=== PATIENT | male | born 1975 | race Caucasian/White ===

== ENCOUNTER 2023-09-09 07:30 | Outpatient (RCR) | payer OTHER, SELFPAY | END 2023-09-11 14:25 | disposition home or self-care (01) | PROVIDERS: PCP Family Medicine; Visit Provider Family Medicine | DX: M23.8X1 Other internal derangements of right knee (principal); M17.11 Unilateral primary osteoarthritis, right knee; Z51.89 Encounter for other specified aftercare | CPT/HCPCS: 97110; 97140; 97161 ==

== ENCOUNTER 2024-09-13 12:18 | Emergency (ER) | payer OTHER, BC, SELFPAY ==
[2024-09-13] VITALS (7 sets, daily range): BP systolic 114–136; BP diastolic 71–90; PULSE 46–54; RESP 16–18; TEMP 36.5; O2SAT 96–98; BMI 28.7
--- OUTSIDE RECORDS SUMMARY | 2024-09-13 12:21 | XMS_ITS | Clinical Summary ---
Author Organization [facility] Address [address] [place] [address] Care Team Providers Care Light Coil Winder Name Role Phone Mann Lau MD Primary Care Provider [phone] Source Comments You are receiving this document as you are listed as the primary care provider,follow-up provider, or the patient has been referred to you for consultation.This is in compliance with the Medicare andMedicaid EHR Incentive Program,which states Providers who transition their patient to another setting of careor provider of care or refers their patient to another provider of care shouldprovide summary care record for each transition of care or referral. [employer] Allergies Active Allergy Reactions Criticality Noted Date Comments Shellfish-Derived Products Unknown 0 Reaction - Unknown; Patient reports has allergy to Shellfish at time of 04/26/19 PT Evaluation. Morphine And Codeine Unknown 04/26/2019 Reaction - Unknown; Patient reports has allergy to Vicodin at time of 04/26/19 PT Evaluation. 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 Gender Identity Not on file Sexual Orientation Not on file Plan of Treatment Health Maintenance Due Date Last Done Comments Colon Cancer Screening Plan Due 1975 Hep C Screening (Preventive Services) 1975 PSA Screening Discussion 1975 HIV Screening (Preventive Services) 1989 Adult Preventive Visit 1991 HepB Vaccine (1) 01/15/1992 Cholesterol 01/15/2008 DTaP/Tdap/Td Vaccine (2 - Tdap) 10/21/2021 10/22/2011 Pneumococcal Vaccine 50+ Yrs (1 of 1 - PCV) 2023 Zoster/Shingles Vaccine (1 of 2) 2023 COVID-19 Vaccine (2 - season) 2023 07/19/2020 Influenza Vaccine (Season Ended) 2024 01/07/2020, 01/13/2019, 01/29/2017, Additional history exists HepA Vaccine Aged Out No longer eligi ble based on patient's age to complete this topic Hib Vaccine Aged Out No longer eligi ble based on patient's age to complete this topic IPV (Polio) Vaccine Aged Out No longe r eligible based on patient's age to complete this topic MCV4 Vaccine Aged Out No longer eligi ble based on patient's age to complete this topic Meningococcal B Vaccine Aged Out No l onger eligible based on patient's age to complete this topic Insurance [employer] Care Teams Light Coil Winder Relationship Specialty Start Date End Date Mann Lau MD [address] [place] [address] PCP - General Family Practice 03/29/19
--- OUTSIDE RECORDS SUMMARY | 2024-09-13 12:21 | XMS_ITS | Clinical Summary ---
Author Organization [facility] Address [address] [place] [address] Care Team Providers Care Sports Marketing Internship Name Role Phone Mann Lau MD Primary Care Provider [phone] Allergies Active Allergy Reactions Criticality Noted Date Comments Amoxicillin Rash 04/26/2011 Hydrocodone-Acetaminophen Rash 04/26/2011 Shellfish Containing Products Edema 2011 Medications sertraline (ZOLOFT) 25 mg tabletIndicati ons:Depression with anxiety Take 1 Tablet (25 mg) by mouth once daily. 90 Tablet 3 5 Active EPINEPHrine (EPIPEN) 0.3 mg/0.3 mL auto-injectorI ndications:Adv erse food reaction, initial encounter Inject 0.3 mg intramuscular one time if needed for Allergic Reaction. Wait until they call for this. 2 Each 2 5 Active albuterol HFA (Ventolin HFA) 90 mcg/actuation inhalerIndicat ions:Environme ntal allergies Inhale 2 Puffs by mouth 4 times daily if needed for Shortness Of Breath. Wait until they call for this. 1 Each 1 5 Active Active Problems Problem Noted Date Diagnosed Date Depression with anxiety 08/09/2016 Encounters Date Type Department Care Team Description 08/02/2024 10:30 AM CDT Nurse/Clinic Staff Only [facility] [address] [place] [address] Immunization/Injecti on (SHINGRIX BOOSTER) 08/02/2024 Travel 07/29/2024 1:30 PM CDT Office Visit [facility] [address] [address] rBenda Gabriel MD Derm Problem 07/28/2024 Travel 07/05/2024 11:30 AM CDT Nurse/Clinic Staff Only [facility] [address] [place] [address] Immunization/Injecti on (COVID-19 AND FLU VACCINES ); Immunization/Injecti on 07/05/2024 Travel 06/21/2024 7:30 AM BOILERMAKER PIPE FITTER Ancillary Procedure [facility] [address] [place] [address] 06/21/2024 Travel 06/18/2024 Travel from Last 3 Months Immunizations Immunization Administration Dates Next Due Amb Influenza CCIIV4 (>=6MO) Pres Free (Flu Clinic Only)(EGG FREE) 01/11/2021 COVID-19 VACCINE SPIKEVAX (M ODERNA 50MCG/0.5ML) 12YO+ PFS 07/05/2024,04/24/2023 COVID-19 vaccine (Moderna 10 0mcg/0.5mL) PF, MDV 03/06/2021,08/16/2020,07/19/2020 INFLUENZA, IIV3 PF (AGE >= 6 MO) 07/05/2024 Influenza Virus, Unspecified 01/07/2020 Influenza, IIV3 (Age >=3 years) 05/01/2012 Influenza, IIV4 05/01/2023,01/13/2019 Influenza, IIV4 (=>6mos) MDV 01/29/2017,01/10/20 16,01/16/2015 Influenza,LAIV4 Live Intranasal (Flumist) 2021,01/25/2013 Tdap 05/08/2023,10/22/2011 Zoster (Shingrix-RZV, recombinant) 08/02/2024, Family History Medical History Relation Name Comments Autism Brother 1 Rich Seizures Brother 1 Rich Cancer-colon Father of this at 76 Heart Disease Father Diabetes Maternal Grandfather Depression Mother Diabetes Mother Diabetes type I Son Relation Name Status Comments Brother 1 Rich Alive Brother 2 Alive Father Maternal Grandfather Mother Alive Sister Alive Son Alive Social History Tobacco Use Types Packs/Day Years Used Date Smoking Tobacco: Never Smokeless Tobacco: Never Tobacco Cessation:Counseling Given: Yes Alcohol Use Standard Drinks/Week Comments Yes 3 (1 standard drink = 0.6 oz pur e alcohol) see screening tab PHQ-2 Answer Date Recorded PHQ-2 TOTAL SCORE 0 04/16/2023 Social Connections Answer Date Recorded Do you often feel lonely or isolated from those around you? 0 06/08/2024 Alcohol Use Answer Date Recorded How often do you have a drink containing alcohol ? 3 06/09/2024 How many drinks containing a lcohol do you have on a typical day when you are drinking? 0 06/09/2024 How often do you have five or more drinks on one occasion? 0 06/09/2024 Financial Resource Strain Answer Date R ecorded Difficulty of Paying Living Expenses 3 06/08/2024 Difficulty of Paying Living Expenses Not on file 06/08/2024 Food Insecurity Answer Date Recorded Do you worry your food will run out before you are able to buy more? 1 06/08/2024 Transportation Needs Answer Date Record ed Does lack of transportation keep you from medica l appointments? 1 06/08/2024 Does lack of transportation keep you from work, meetings or getting things that you need? 1 06/08/2024 Housing Stability Answer Date Recorded What is your housing situation today? 1 06/08/2024 Utilities Answer Date Recorded Do you have trouble paying f or utilities (for example, heat, electricity, water, phone)? 1 06/08/2024 Sex and Gender Information Value Date Recorded Sex Assigned at Not on file Legal Sex Male 8:18 AM BOILERMAKER PIPE FITTER Gender Identity Not on file Sexual Orientation Not on file Occupation Industry Job Start Date Job End Date Professor Not on file Not on file Not on file Obstetrics History Last Filed Vital Signs Vital Sign Reading Time Taken Comments Blood Pressure 125/82 06/09/2024 10:39 AM BOILERMAKER PIPE FITTER Pulse 54 06/09/2024 10:39 AM BOILERMAKER PIPE FITTER Temperature 36.4 C (97.5 F) 06/09/2024 10:39 AM BOILERMAKER PIPE FITTER Respiratory Rate - - Oxygen Saturation 98% 06/09/2024 10: 39 AM BOILERMAKER PIPE FITTER Inhaled Oxygen Concentration - - Weight 104.8 kg (231 lb 1.6 oz) 025 10:39 AM BOILERMAKER PIPE FITTER Height 181.1 cm (5' 11.3) 06/09/2024 1 0:39 AM BOILERMAKER PIPE FITTER Body Mass Index 31.96 06/09/2024 10:39 AM BOILERMAKER PIPE FITTER Plan of Treatment Health Maintenance Due Date Last Done Comments HIV for age 15-65 01/15/1988 Hepatitis C screening for ag e 18-79 1991 Hepatitis B series for 19+ ( 1 of 3 - 19+ 3-dose series) 01/15/1992 Pneumococcal series for age 50+ (1 of 1 - PCV) 2023 Depression screening for age 12+ 04/16/2024 04/16/2023, 08/28/2022, 05/14/2021, Additional history exists BMI (ht and wt on same day) for age 18+ 06/09/2025 06/09/2024, 04/16/2023, 08/28/2022, Additional history exists Lipids for age 45-75 05/14/2026 05/14/2021, 08/09/2016, 10/28/2011 Colonoscopy through age 75 10/13/203110/12, 10/12/2021, 10/12/2021 Tetanus booster 05/08/2033 05/08/2023, 10/22/2011 Tdap Completed 05/08/2023, 10/22/2011 COVID-19 vaccine series Completed 07/06/19 25, 04/24/2023, 02/18/2022, Additional history exists Influenza Vaccine Completed 07/05/2024, , 02/18/2022, Additional history exists Zoster (shingles) series for age 50+ Completed 08/02/2024, 05/31/2024 Procedures Procedure Name Priority Date/Time Associated Diagnosis Comments US SCROTUM WITH DUPLEX Routine 06/21/2024 7:59 AM BOILERMAKER PIPE FITTER Scrotal lesion COLONOSCOPY 10/12/2021 7:46 AM CDT LIPID PANEL W REFLEX MEASURED LDL Routine 05/14/2021 3:12 PM BOILERMAKER PIPE FITTER Lipid screening from Last 3 Months or Most Recently Relevant to Health Maintenance Results * US SCROTUM W DUPLEX (06/21/2024 7:59 AM BOILERMAKER PIPE FITTER) Anatomical Region Laterality Modality SCROTUM, TESTES Ultrasound 06/21/2024 10:3 7 AM BOILERMAKER PIPE FITTER Narrative 06/21/2024 10:37 AM BOILERMAKER PIPE FITTER For Patients: As a result of the Cures Act, medical imaging exams and procedure reports are released immediately into your electronic medical record. You may view this report before your referring provider. If you have questions, please contact your health care provider. INDICATION : Palpable lump in the left scrotum TECHNIQUE : Scrotal ultrasound. Duplex evaluation with color Doppler spectral waveform arterial imaging of the testicles to evaluate blood flow. Grayscale images of the scrotum. FINDINGS : Palpable left scrotum: Superficial hypoechoic with central echogenic focus 4 x 7 millimeters. This is within the scrotal skin. Right scrotum: Sonographically unremarkable testicle and epididymis intact arterial flow. Left scrotum: Sonographically unremarkable testicle and epididymis intact arterial flow. IMPRESSION : 1. Small benign-appearing left scrotal superficial lesion possibly some type of epidermal inclusion or possibly an area of old vein thrombus with calcification. No suspicious sonographic features. 2. Unremarkable underlying testicular and epididymal structures. Dictated by Cipriano Arizmendi MD @ 06/21/2024 10:37:15 AM (Electronically Signed) Procedure Note Cipriano Arizmendi MD - 06/21/2024 For Patients: As a result of the Cures Act, medical imagingexams and procedure reports are released immediately into your electronicmedical record. You may view this report before your referring provider.If you have questions, please contact your health care provider. INDICATION : Palpable lump in the left scrotum TECHNIQUE : Scrotal ultrasound. Duplex evaluation with color Doppler spectral waveformarterial imaging of the testicles to evaluate blood flow. Grayscale imagesof the scrotum. FINDINGS : Palpable left scrotum: Superficial hypoechoic with central echogenic focus 4 x 7 millimeters.This is within the scrotal skin. Right scrotum: Sonographically unremarkable testicle and epididymis intactarterial flow. Left scrotum: Sonographically unremarkable testicle and epididymis intactarterial flow. IMPRESSION : 1. Small benign-appearing left scrotal superficial lesion possibly sometype of epidermal inclusion or possibly an area of old vein thrombus withcalcification. No suspicious sonographic features. 2. Unremarkable underlying testicular and epididymal structures. Dictated by Cipriano Arizmendi MD @ 06/21/2024 10:37:15 AM (Electronically Signed) us Mann Lau MD Final Resu lt * COLONOSCOPY (10/12/2021 7:46 AM CDT) 10/12/2021 7:46 AM CDT Narrative Transcriptions Angel Schreiber MD - 10/12/2021 9:09 AM CDT Patient Name: Anselmo Nick Procedure Date: 10/12/2021 Gender: Male Date of : 1975 Admit Type: Outpatient Procedure: Colonoscopy Proceduralist: Angel Schreiber MD , Barbara Evans (Nurse) Referring MD: Mann Lau Indications/Pre-Op Diagnosis: Screening for colorectal malignant neoplasm, This is the patient's first colonoscopy Medications: Fentanyl 100 micrograms IV, Midazolam 4 mgIV, The level of sedation administered wasmoderate Procedure Description: The patient had risks, benefits and alternatives explained to andgave informed consent. The patient had a stable cardiopulmonary status and judged an adequate candidate for conscious sedation. The Colon [id number] was passed through the anus and advancedto the terminal ileum. The colonoscopy was performed without difficulty. The patient tolerated the procedure well. The quality of the bowel preparation was good. The terminal ileum, ileocecal valve,appendiceal orifice, and rectum were photographed. Complications: No immediate complications. Estimated Blood Loss & Specimen: Estimated blood loss: none. Specimen collected - Yes and sent to Laboratory Findings: The perianal and digital rectal examinations were normal. The terminal ileum appeared normal. Two sessile polyps were found in the rectum. The polyps were 2 to 3mm in size. These polyps were removed with a cold biopsy forceps.Resection and retrieval were complete. A few small-mouthed diverticula were found in the sigmoid colon. The exam was otherwise without abnormality on direct and retroflexion views. Impressions/Post-Op Diagnosis: - The examined portion of the ileum was normal. - Two 2 to 3 mm polyps in the rectum, removed with a cold biopsy forceps. Resected and retrieved. - Diverticulosis in the sigmoid colon. - The examination was otherwise normal on direct and retroflexionviews. Recommendation: - Patient has a contact number available for emergencies. The signsand symptoms of potential delayed complications were discussed with the patient. Return to normal activities tomorrow. Written discharge instructions were provided to the patient. - Resume previous diet. - Continue present medications. - Await pathology results. - Repeat colonoscopy is recommended. The colonoscopy date will be determined after pathology results from today's exam become available for review. Moderate Sedation: Moderate (conscious) sedation was administered by the endoscopy nurse and supervised by the endoscopist. The following parameters were monitored: oxygen saturation, heart rate, respiratory rate, blood pressure, adequacy of pulmonary ventilation and reponse to care. Please refer to the patient's medical record flowsheets and nursing notes for moderate sedation details. Total physician intraservice time was 16 minutes. Angel Schreiber MD 10/12/2021 9:09:01 AM This report has been signed electronically. Note Initiated On: 10/12/2021 7:46 AM Procedure Code(s): --- Professional --- 23950, Colonoscopy, flexible; with biopsy, single or multiple Diagnosis Code(s): --- Professional --- Z12.11, Encounter for screening formalignant neoplasm of colon D12.8, Benign neoplasm of rectum K57.30, Diverticulosis of large intestine without perforation or abscess withoutbleeding CPT copyright 2020 [employer]. All rights reserved. The codes documented in this report are preliminary and upon textile machinery instructor reviewmay be revised to meet current compliance requirements. Scope In: 8:41:15 AM Scope Withdrawal Time 0 hours 9 minutes 27 seconds Scope Out: 8:56:03 AM us Angel Schreiber MD PROCEDURE ORD Final Res ult * (ABNORMAL) LIPID PANEL W REFLEX MEASURED LDL (05/14/2021 3:12 PM BOILERMAKER PIPE FITTER) CHOLESTEROL,TOTAL 185 100 - 199 mg/dL 05/14/2021 8:23 PM BOILERMAKER PIPE FITTER [facility] TRIGLYCERIDES 177(H) <150 mg/dL 05/14/2021 8:23 PM BOILERMAKER PIPE FITTER [facility] HDL CHOLESTEROL 35(L) >40 mg/dL 8:23 PM BOILERMAKER PIPE FITTER [facility] NON-HDL CHOLESTEROL 150(H) <145 mg/dl 05/14/2021 8:23 PM BOILERMAKER PIPE FITTER [facility] CHOL/HDL RATIO 5.29(H) <4.50 05/14/2021 8:23 PM BOILERMAKER PIPE FITTER [facility] LDL CHOLESTEROL 115 <=130 mg/dL 05/14/2021 8:23 PM BOILERMAKER PIPE FITTER [facility] VLDL CHOLESTEROL 35(H) <=30 mg/dL 05/14/2021 8:23 PM BOILERMAKER PIPE FITTER [facility] PROVIDER ORDERED STATUS RANDOM 05/14/2021 8:23 PM BOILERMAKER PIPE FITTER [facility] Blood BLOOD SPECIMEN / Unknown Venipuncture / Unknown 05/14/2021 3:12 PM BOILERMAKER PIPE FITTER 05/14/2021 3:17 PM BOILERMAKER PIPE FITTER us Mann Lau MD CHEMISTRY Final Resu lt [facility] [address] [place] [address], [place] from Last 3 Months or Most Recently Relevant to Health Maintenance Insurance [employer] OF [employer]-MI-ITS Care Teams Sports Marketing Internship Relationship Specialty Start Date End Date Mann Lau [place] [address] PCP - General Family Practice 07/14/14
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
[2024-09-13 13:00] LABS: HCO3 VBG 27 mmol/L (21-28); PCO2 VBG 44 mmHG (40-50); PO2 VBG 64.5 mmHG (25-47); pH VBG 7.395 (7.32-7.43)
[2024-09-13 13:02] LABS: Basophils Absolute Auto 0.02 K/uL (0.00-0.30); Basophils Percent Auto 0.4 % (0.0-3.0); Eosinophils Absolute Auto 0.06 K/uL (0.00-0.50); Eosinophils Percent Auto 1.1 % (0.0-7.0); Hematocrit 44.8 % (37.0-53.0); Hemoglobin* 15.4 gm/dL (13.5-17.5); Immature Granulocytes Abs Auto 0.03 K/uL (0.00-0.30); Immature Granulocytes Pct Auto 0.6 %; Lymphocytes Absolute Auto 1.13 K/uL (0.90-2.90); Lymphocytes Percent Auto 20.9 % (20-44); Mean Corpuscular HGB Conc 34 gm/dL (32-36); Mean Corpuscular Hemoglobin 28 pg (26-34); Mean Corpuscular Volume 80 fL (80-100); Monocytes Percent Auto 6.8 % (0.0-11.0); Neutrophils Percent Auto 70.2 % (42.0-72.0); Platelet Count* 209 K/uL (140-440); Red Blood Count 5.59 m/uL (4.30-5.90); White Blood Count* 5.41 K/uL (4.50-11.00)
[2024-09-13 13:04] LABS: Slide Review Reflex No
[2024-09-13 13:20] LABS: Albumin* 4.7 g/dL (3.3-5.0); Chloride* 103 mmol/L (96-114); Potassium* 4.1 mmol/L (3.6-5.1); Sodium* 138 mmol/L (135-149)
[2024-09-13 13:22] LABS: Blood Urea Nitrogen* 21 mg/dL (7-30); Creatinine* 0.8 mg/dL (0.5-1.5); Estimated Glomerular Filt Rate 107 ml/min
[2024-09-13 13:23] LABS: Alanine Aminotransferase* 49 U/L (4-50); Alkaline Phosphatase* 65 U/L (40-150); Anion Gap 8 mEq/L (7-15); Aspartate Amino Transferase* 49 U/L (12-35); Bilirubin Total* 0.8 mg/dL (0.1-1.5); Calcium* 9.6 mg/dL (8.4-10.6); Carbon Dioxide* 27 mmol/L (20-32); Glucose* 115 mg/dL (60-115); Total Protein* 7.9 g/dL (6.0-8.3)
[2024-09-13 13:39] LABS: NT Pro B Type NatriureticPept* 124 pg/mL (See Note); Troponin I* < 0.01 ng/mL (0.01-0.04)
== END 2024-09-13 14:39 | disposition home or self-care (01) ==
PROVIDERS: Emergency Provider Family Medicine; PCP Family Medicine
DX: R07.89 Other chest pain (principal); S80.812A Abrasion, left lower leg, initial encounter; V43.62XA Car passenger injured in collision with other type car in traffic accident, initial encounter; Y92.411 Interstate highway as the place of occurrence of the external cause
CPT/HCPCS: 36415; 71045; 71260; 80053; 82803; 83880; 84484; 85025; 93005; 94761; 99284; 99285; 99291; G0390; Q9967